=== PATIENT | female | born 1970 | race American Indian/Alaskan Native ===

== ENCOUNTER 2019-07-05 06:07 | Inpatient (IN) | payer OTHER, MEDICAID ==
[2019-07-05] MEDS ORDERED: cefOXitin 2 GM Vial ONE (06:40)
[2019-07-05] MEDS ORDERED: Scopolamine 1.5 MG Transdermal Patch TOP SCH (06:45)
[2019-07-05] MEDS ORDERED: Gabapentin 300 MG Cap PO ONE (06:45)
[2019-07-05] MEDS ORDERED: Acetaminophen 500 MG Tab PO ONE (06:45)
[2019-07-05] MEDS ORDERED: Celecoxib 200 MG Cap PO ONE (06:45)
[2019-07-05] MEDS ORDERED: Dextrose 5%-Lactated Ringers 1,000 ML IV SCH (07:00)
[2019-07-05] MEDS ORDERED: fentaNYL 250 MCG/5 ML SDV ONE ×2 (07:28→10:36)
[2019-07-05] MEDS ORDERED: Ondansetron 4 MG/2 ML SDV ONE (07:29)
[2019-07-05] MEDS ORDERED: Neostigmine Methylsulfate 1 MG/ML 5 ML Syringe ONE (07:29)
[2019-07-05] MEDS ORDERED: Succinylcholine 200 MG/10 ML MDV ONE (07:29)
[2019-07-05] MEDS ORDERED: Glycopyrrolate 0.2 MG/ML 5 ML MDV ONE (07:29)
[2019-07-05] MEDS ORDERED: Propofol 200 MG/20 ML SDV ONE (07:29)
[2019-07-05] MEDS ORDERED: Rocuronium 50 MG/5 ML Vial ONE (07:29)
[2019-07-05] MEDS ORDERED: Dexamethasone 4 MG/ML SDV ONE (07:29)
[2019-07-05] MEDS ORDERED: Magnesium Sulfate 3.7 GM in Sodium Chloride 0.9% 100 ML IV SCH (08:45)
[2019-07-05] MEDS ORDERED: Ketamine 500 MG/5 ML MDV IV SCH (08:45)
[2019-07-05] MEDS ORDERED: Ketamine 50 MG in Sodium Chloride 0.9% 49.5 ML IV SCH (08:45)
[2019-07-05] MEDS ORDERED: cefOXitin 2 GM in Sodium Chloride 0.9% 50 ML IV ONE (10:00)
[2019-07-05] MEDS ORDERED: fentaNYL 100 MCG/2 ML SDV ONE (11:17)
[2019-07-05] MEDS ORDERED: Labetalol 20 MG/4 ML Syringe ONE (11:33)
[2019-07-05] MEDS ORDERED: fentaNYL 100 MCG/2 ML SDV IVPUSH ONE (12:18)
[2019-07-05] MEDS ORDERED: Ondansetron 4 MG/2 ML SDV IVPUSH ONE (12:18)
[2019-07-05] MEDS ORDERED: hydrOXYzine HCL 100 MG/2 ML SDV IM ONE (12:18)
[2019-07-05] MEDS ORDERED: Tranexamic Acid 1,000 MG in Sodium Chloride 0.9% 50 ML IV ONE ×2 (12:45→16:00)
[2019-07-05] MEDS ORDERED: Coagulation Factor VIIa Recombinant (per MCG) 2 MG Vial IVPUSH ONE (13:15)
[2019-07-05] MEDS ORDERED: Acetaminophen 500 MG Tab PO PRN (14:20)
[2019-07-05] MEDS ORDERED: Albuterol/Ipratropium 3.0-0.5 MG/3 ML Neb Soln INH PRN (14:20)
[2019-07-05] MEDS ORDERED: Calcium Gluconate 10% 1 GM/10 ML SDV IVPUSH PRN (14:20)
[2019-07-05] MEDS ORDERED: HYDROmorphone 0.5 MG/0.5 ML Syringe IVPUSH PRN (14:20)
[2019-07-05] MEDS ORDERED: Labetalol 20 MG/4 ML Syringe IVPUSH PRN (14:20)
[2019-07-05] MEDS ORDERED: HYDROmorphone 1 MG/ML Syringe IV PRN (14:20)
[2019-07-05] MEDS ORDERED: Ondansetron 4 MG/2 ML SDV IVPUSH PRN (14:20)
[2019-07-05] MEDS ORDERED: diphenhydrAMINE 50 MG/ML SDV IVPUSH PRN (14:20)
[2019-07-05] MEDS ORDERED: Metoclopramide 10 MG/2 ML SDV IVPUSH PRN (14:20)
[2019-07-05] MEDS: Dextrose 5%-Lactated Ringers 1,000 ML IV SCH ×2 (14:22→16:22)
[2019-07-05] MEDS ORDERED: MVI, Adult with Vitamin K 10 ML, Thiamine 200 MG, Chromium/Copper/Mang/Selen/Zn 1 ML in... IV SCH ×4 (16:00)
[2019-07-05] MEDS: cefOXitin 2 GM in Sodium Chloride 0.9% 50 ML IV SCH ×2 (16:21→21:52)
[2019-07-05] MEDS ORDERED: Pantoprazole 40 MG Vial IVPUSH SCH (16:30)
[2019-07-05] MEDS: Acetaminophen 500 MG Tab PO SCH (17:01)
[2019-07-05] MEDS: hydrOXYzine HCL 100 MG/2 ML SDV IM PRN (17:02)
[2019-07-05] MEDS: oxyCODONE 5 MG Tab PO PRN (17:02)
[2019-07-05] MEDS: Gabapentin 250 MG/5 ML Solution ML 470 ML Bottle PO SCH (21:53)
[2019-07-05] MEDS: Cyclobenzaprine 10 MG Tab PO PRN (21:53)
[2019-07-05] MEDS: Metoprolol Succinate 25 MG Tab.ER PO SCH (21:54)
[2019-07-05] MEDS: Nortriptyline 25 MG Cap PO SCH (21:54)
[2019-07-06] MEDS: Acetaminophen 500 MG Tab PO SCH ×4 (00:05→23:10)
[2019-07-06] MEDS ORDERED: methylPREDNISolone Sodium Succinate 125 MG/2 ML SDV IV ONE (03:45)
[2019-07-06] MEDS ORDERED: Iopamidol 612 MG/ML 50 ML SDV PO STA (03:45)
[2019-07-06] MEDS: cefOXitin 2 GM in Sodium Chloride 0.9% 50 ML IV SCH (03:45)
[2019-07-06] MEDS: Dextrose 5%-Lactated Ringers 1,000 ML IV SCH (05:33)
[2019-07-06] MEDS: oxyCODONE 5 MG Tab PO PRN ×2 (07:14→14:07)
[2019-07-06] MEDS ORDERED: Dextrose 5%-Lactated Ringers 1,000 ML IV SCH (07:28)
[2019-07-06] MEDS ORDERED: Ondansetron 4 MG Tab.DIS PO PRN (07:29)
[2019-07-06] MEDS: Enoxaparin 40 MG/0.4 ML Syringe SUBCUT SCH ×2 (09:07→21:03)
[2019-07-06] MEDS: Escitalopram 10 MG Tab PO SCH (09:10)
[2019-07-06] MEDS: Celecoxib 200 MG Cap PO SCH ×2 (09:10→21:03)
[2019-07-06] MEDS: Gabapentin 250 MG/5 ML Solution ML 470 ML Bottle PO SCH ×3 (09:10→21:03)
[2019-07-06] MEDS: SCOPOLAMINE PATCH CHECK TOP SCH (09:12)
--- NOTE | 2019-07-06 09:33 | PN ---
DATE OF SERVICE: 07/06/2019 SUBJECTIVE: Melanie is postop day 1. Postoperatively, she had a lot of bleeding from her left trocar site. She was given 2 doses of tranexamic acid and fibrin. She has been up ambulating. Vital signs stable. Labs this morning: Hemoglobin 12.2. Oral intake 1730. Urine output 1400, and LISSETTE put out 50 mL of a red drainage. Pain has been controlled with energy protocol. REVIEW OF SYSTEMS: Remainder of review of systems negative for any pertinent positives or negatives. LABORATORY DATA: As stated. Hemoglobin 12.5. Creatinine 1.3. OBJECTIVE: GENERAL: Melanie Pickens is a pleasant 49-year-old female, alert, orientated. VITAL SIGNS: TPR at 0704, 98.9, 76, 16, blood pressure 99/72. HEENT: Negative. NECK: Supple. HEART: Regular rate and rhythm. LUNGS: Clear. ABDOMEN: Dressings dry and intact. There is a pressure dressing over left trocar site. EXTREMITIES: Without peripheral edema. ASSESSMENT: Diagnostic laparoscopy with: 1. Laparoscopic Levy-en-Y gastric bypass surgery. 2. Liver biopsy. 3. Repair of paraesophageal diaphragmatic hernia. 4. Excision of mediastinal lipoma. 5. Small bowel resection. POSTOPERATIVE DIAGNOSES: Morbid obesity, hepatomegaly, paraesophageal diaphragmatic hernia, mediastinal lipoma, and immobile fat layer mesentery requiring small bowel resection to allow adequate mobilization of the jejunojejunostomy. Date of surgery: 07/05/2019. Surgeon: Talon Sparks MD. PLAN: 1. Lovenox 40 mg subcu q.12 hours. 2. Check CBC, CMP, mag, phos in a.m. 3. Discontinue cefoxitin. 4. Decrease IV to 100 mL per hour. 5. Leave pressure dressing over left trocar site. 6. Bariatric step 2 with no cereal diet. 7. Communication order to have 3 med cups at bedside and to drink 1 every 20 minutes or 3 per hour and record. 8. Good pulmonary toilet. 9. We will evaluate p.r.n. or in a.m. Shae Griffin PA-C /[id number]
--- NOTE | 2019-07-06 09:50 | CR ---
UG[facility] HISTORY: Postbariatric surgery FINDINGS: Patient swallowed water-soluble contrast. Upright views of the abdomen show no evidence of extravasation or obstruction. IMPRESSION: Status post bariatric surgery No extravasation or obstruction seen
[2019-07-06] MEDS: amLODIPine 5 MG Tab PO SCH (09:52)
[2019-07-06] MEDS: Metoprolol Succinate 25 MG Tab.ER PO SCH ×2 (09:58→21:06)
--- NOTE | 2019-07-06 12:24 | OR ---
DATE OF PROCEDURE: 07/05/2019 SURGEON: Talon Sparks MD PREOPERATIVE DIAGNOSIS: Morbid obesity. POSTOPERATIVE DIAGNOSIS: 1. Morbid obesity. 2. Marked hepatomegaly. 3. Paraesophageal diaphragmatic hernia. 4. Mediastinal lipoma. 5. Immobile fat-laden mesentery requiring small bowel resection to allow adequate mobility of jejunojejunostomy. OPERATIVE PROCEDURE: Diagnostic laparoscopy with: 1. Laparoscopic Levy-en-Y gastric bypass with long limb gastroenterostomy (68460). 2. Needle liver biopsy (83924). 3. Repair of paraesophageal diaphragmatic hernia (90840). 4. Excision of mediastinal lipoma (84058). 5. Small bowel resection (33223). ANESTHESIA: General. POCKET OPERATOR: Shae Griffin PA-C INDICATION FOR PROCEDURE: This is a 49-year-old female presenting with longstanding morbid obesity and increasingly significant comorbidities. After preoperative evaluation and discussion, she wished to proceed with a gastric bypass procedure. Potential risks of the procedure including bleeding, infection, leaks from various GI tract closures, possible bowel obstruction over time, as well as the remote possibility of cardiopulmonary, septic, or hemorrhagic complications leading to were all discussed, and the patient wishes to proceed. DETAILS OF PROCEDURE: The patient was taken to the operating room and placed in a supine position. After general endotracheal anesthesia was induced, she was converted to a lithotomy position and the abdomen prepped and draped. 15 cm inferior and 5 cm left of the xiphoid process, a transverse incision was made and the peritoneal cavity entered under direct visualization with an Optiview trocar and inflated to 15 mmHg pressure of CO2. Laparoscope was then reinserted. No underlying trocar insertion site injuries were seen. Following this, bilateral subcostal transversus abdominis plane blocks were placed, and 5 additional trocars were placed across the upper and mid abdomen. Initial exploration showed marked enlargement of the liver which was fatty infiltrated. Hector-Cut needle biopsies were obtained from the left lobe of the liver. Minimal bleeding from the biopsy sites was controlled with electrocautery. At this point, the omentum was divided in the midline up to the level of the transverse colon. This allowed identification of the small bowel at the ligament of Treitz. The small bowel was then traced out 150 cm distal to the ligament of Treitz. It was divided transversely with a KENIA stapler. It was noted that the small bowel mesentery was extremely fat laden and not very mobile. Given this, an additional small bowel resection was undertaken, removing around 12 cm of the biliopancreatic limb which will typically give us a much more immobile jejunojejunostomy to ligate a more tension-free subsequent gastrojejunostomy. Following this, excision was done with the Harmonic scalpel and division of the bowel with a KENIA stapler. The more distal small bowel was then traced out an additional 180 cm where the [id number] enteroenterostomy was accomplished with an internal firing of the Endo-KENIA 60 mm stapler. Common opening was then closed transversely with the same stapler, angles anastomosed, and mesenteric defect approximated with some 0 Ethibond stitch along with fibrin sealant. Divided end of the Levy limb was then able to be passed through the antecolic position up to the level of the gastroesophageal junction without significant tension. The liver was then retracted anteriorly. The patient was noted to have a fairly large paraesophageal hernia containing some perigastric fat and the gastric fundus as well as kind of omentum in a plane anterior to the course of the esophagus. The hernia was then reduced and the peritoneum overlying the hernia incised. During the course of the dissection, a fairly large mediastinal lipoma was encountered, and this was excised to allow a more adequate closure of the crura. An anterior crural repair was then accomplished with 0 Ethibond sutures reinforced with PTFE pledgets. The gastrointestinal catheter was then inflated to 15 mL and pulled up snugly against the EG junction. The gastric wall over the apex balloon was then marked with electrocautery and balloon catheter deflated and pulled up from the esophagus. The lesser omental tissue adjacent to the gastric cardia was then incised, allowing dissection behind the stomach at that level. Pouch formation was initiated with transverse firing of the KENIA stapler at the level of the cauterized ronda in the gastric cardia and completed with 2 initial firings of the KNEIA get up to and through the angle of His. Upon completion of the pouch, both staple lines were noted to be intact. The anvil of a 25 mm EEA stapler was attached to a Estill sump-type tube and brought down through the mouth and taken out through a small opening in the gastric pouch. The Levy limb was then opened, and the main body of the EEA stapler was passed several centimeters out the lumen of the small bowel, brought up the anvil, and united with it, thus creating the gastrojejunostomy. Upon removal of the stapler, double donuts of mucosa were noted within it. The small bowel was closed off with a vascular staple line. Gastrojejunostomy was then reinforced with some 3-0 Vicryl seromuscular stitch along with fibrin sealant. A leak test was accomplished with injection of 120 mL of air in the gastric pouch while it was submerged with cefoxitin-containing saline solution. No leaks were identified. A single Alok-Ramirez drain was then taken out through the left lateral trocar site. Upon withdrawal of the left lateral trocar, the patient was noted to have quite a bit of arterial-type bleeding from that area. This was then secured by means of 2 fascial stitches placed with a suture passer device, these being 0 Vicryl sutures, and this appeared to satisfactorily control the bleeding. The blood in the abdomen at that point was evacuated, and trocars were removed. The peritoneal cavity deflated. The incisions were closed with some 4-0 Vicryl skin stitch, and drain affixed with 4-0 Vicryl stitch as well. The patient was taken to the recovery room in stable condition. Physician pediatric physical therapy assistant, Shae Griffin, played an essential role in assisting in this case, helping to position the patient, retract structures as needed, as well as suturing and cutting sutures when indicated. Her presence improved patient safety and decreased operative time. Talon Sparks MD /[id number]
[2019-07-06] MEDS: Pantoprazole 40 MG Tab.CR PO SCH (16:44)
[2019-07-06] MEDS: Cyclobenzaprine 10 MG Tab PO PRN (17:08)
[2019-07-06] MEDS: hydrOXYzine HCL 100 MG/2 ML SDV IM PRN (17:08)
[2019-07-06] MEDS: Nortriptyline 25 MG Cap PO SCH (21:03)
[2019-07-07] MEDS: Enoxaparin 40 MG/0.4 ML Syringe SUBCUT SCH (07:14)
[2019-07-07] MEDS: Acetaminophen 500 MG Tab PO SCH (07:15)
[2019-07-07] MEDS: SCOPOLAMINE PATCH CHECK TOP SCH (08:29)
[2019-07-07] MEDS: Celecoxib 200 MG Cap PO SCH (08:29)
[2019-07-07] MEDS: Escitalopram 10 MG Tab PO SCH (08:29)
[2019-07-07] MEDS: Gabapentin 250 MG/5 ML Solution ML 470 ML Bottle PO SCH (08:29)
[2019-07-07] MEDS: amLODIPine 5 MG Tab PO SCH (08:29)
[2019-07-07] MEDS: Metoprolol Succinate 25 MG Tab.ER PO SCH (08:30)
[2019-07-07] MEDS: Pantoprazole 40 MG Tab.CR PO SCH (08:30)
[2019-07-07] MEDS ORDERED: Cyanocobalamin (Vitamin B12) 1,000 MCG/ML SDV IM ONE (09:00)
--- NOTE | 2019-07-07 09:18 | DISCH ---
ADMISSION DIAGNOSES: Morbid obesity, BMI 42.6; essential hypertension; anxiety; major depression; chronic low back pain; gastroesophageal reflux disease; mild obstructive sleep apnea. DISCHARGE DIAGNOSES: Diagnostic laparoscopy with: 1. Laparoscopic Levy-en-Y gastric bypass surgery with long limb gastroenterostomy. 2. Needle liver biopsy. 3. Repair of paraesophageal diaphragmatic hernia. 4. Excision of mediastinal lipoma. 5. Small bowel resection. POSTOPERATIVE DIAGNOSES: 1. Morbid obesity. 2. Marked hepatomegaly. 3. Paraesophageal diaphragmatic hernia. 4. Mediastinal lipoma. 5. Immobile fat laden mesentery requiring small bowel resection to allow adequate mobility of jejunojejunostomy. 6. Date of surgery: 07/05/2019. Surgeon: Talon Sparks MD. HISTORY: Melanie Pickens is a 49-year-old female presenting with longstanding history of morbid obesity and increasing comorbidities. After preoperative evaluation and discussion of possible risks and possible complications, she wished to proceed with surgical procedure. HOSPITAL COURSE: Melanie had her surgery on 07/05/2019. She had arterial type bleeding from the left lateral trocar site and it was secured with 2 fascial sutures and a suture passer device. She continued to bleed and was given 2 doses of tranexamic acid and factor VII. Heparin was held and the next day she was started on Lovenox. On postoperative day #1, upper GI was normal, started on Lovenox as stated, and she received dietary instruction. Her activity was good. Pain was managed with energy protocol. Her hemoglobin was 12.2 and on day of admission was 10.2. Vital signs were stable, afebrile. Oral intake adequate at 2870 and she was able to be discharged to home with no complications. PHYSICAL EXAMINATION: GENERAL: Melanie Pickens is a pleasant 49-year-old female. VITAL SIGNS: Height is 5 feet 7.5 inches, weight is 275 pounds, BMI 42.6. TPR at 07:02 was 97.9, 67, 16, blood pressure 99/56, O2 sats by pulse oximetry 95%. HEENT: Negative. NECK: Supple. HEART: Regular rate and rhythm. LUNGS: Clear. ABDOMEN: Trocar sites, sutures intact, healing well. EXTREMITIES: Without peripheral edema. DISPOSITION: Discharged to home. CONDITION: Stable and improving. FOLLOWUP APPOINTMENT: Shae Griffin PA-C, on 07/15/2019 at 9:[address] [facility]. HOME MEDICATIONS: 1. Tylenol 1000 mg every 8 hours p.r.n. pain. 2. Wellbutrin 75 mg b.i.d. #60, 11 refills. 3. Celebrex 200 mg twice daily, #28. 4. Zofran ODT 4 mg every 4 hours p.r.n. nausea, #30. 5. She is to discontinue taking the Wellbutrin 300 mg XL once daily. 6. Resume aspirin 81 mg daily. 7. Lexapro 10 mg oral daily. 8. Toprol-XL 12.5 mg oral twice daily. 9. Pamelor/nortriptyline 25 mg at bedtime. 10.Atorvastatin 20 mg oral daily. 11.Amlodipine besylate 5 mg oral daily. 12.Hydrochlorothiazide 25 mg oral daily. 13.Discontinue taking vitamins and supplements until after first postoperative appointment. DIET AFTER DISCHARGE: Drink 8 to 10 glasses of water a day. Step 2 gastric bypass diet with no cereal until 07/20/2019. ACTIVITY: Other activity: Walk at least 6 times inside your house daily. Driving: Do not drive for 1 week. Shower/bathing: May shower. DISCHARGE INSTRUCTIONS: Notify provider if any fever, increased pain, nausea, or vomiting. Keep site clean and dry. Wound incision care. Wear abdominal binder for 2 weeks and then as tolerated. SPECIAL INSTRUCTIONS: 1. One use incentive spirometer 10 times every hour while awake for 1 week. 2. On your way home today and when coming back for your appointment next Thursday, stop in [place] and walk around your car about 10 times to avoid getting the blood clot.
== END 2019-07-07 08:50 | disposition home or self-care (01) | DRG 621 ==
LOC: JP.SDS 06:07 → JP.MS 06:07 → EDSTATUS 08:15 → JP.MS 12:30
PROVIDERS: ADMIT Surgery; ATTEND Surgery
PROC: 0D164ZA Bypass Stomach to Jejunum, Percutaneous Endoscopic Approach (ICD-10-PCS; principal; 2019-07-05)
PROC: 0FB24ZX Excision of Left Lobe Liver, Percutaneous Endoscopic Approach, Diagnostic (ICD-10-PCS; 2019-07-05)
PROC: 0BQT4ZZ Repair Diaphragm, Percutaneous Endoscopic Approach (ICD-10-PCS; 2019-07-05)
PROC: 0DB84ZZ Excision of Small Intestine, Percutaneous Endoscopic Approach (ICD-10-PCS; 2019-07-05)
PROC: 0JB63ZZ Excision of Chest Subcutaneous Tissue and Fascia, Percutaneous Approach (ICD-10-PCS; 2019-07-05)
DX: E66.01 Morbid (severe) obesity due to excess calories (principal); R16.0 Hepatomegaly, not elsewhere classified; D17.4 Benign lipomatous neoplasm of intrathoracic organs; K44.9 Diaphragmatic hernia without obstruction or gangrene; Z68.41 Body mass index [BMI] 40.0-44.9, adult; K21.9 Gastro-esophageal reflux disease without esophagitis; G47.33 Obstructive sleep apnea (adult) (pediatric); F41.9 Anxiety disorder, unspecified; F32.9 Major depressive disorder, single episode, unspecified; M54.5 Low back pain; G89.29 Other chronic pain; I10 Essential (primary) hypertension; E78.5 Hyperlipidemia, unspecified; Z90.49 Acquired absence of other specified parts of digestive tract; Z90.710 Acquired absence of both cervix and uterus; Z91.09 Other allergy status, other than to drugs and biological substances; Z87.891 Personal history of nicotine dependence; Z79.82 Long term (current) use of aspirin; Z79.899 Other long term (current) drug therapy
CPT/HCPCS: 36415; 74240; 74240-26; 80053; 81003; 83735; 83880; 84100; 85025; 85027; 86850; 86900; 86901; 88304; 88307; 88313; 93005; A9270-GY; C9113; J0171; J0330; J0694; J1100; J1170; J1650; J2405; J2704; J2710; J2795; J2930; J3010; J3410; J3411; J3420; J3475; J3490; J7030; J7050; J7121; J7189; Q9967

== ENCOUNTER 2019-07-13 11:31 | Observation (INO) | payer OTHER, MEDICAID ==
[2019-07-13] MEDS ORDERED: Meropenem 500 MG in Sodium Chloride 0.9% 50 ML IV ONE (13:00)
[2019-07-13] MEDS ORDERED: Cyclobenzaprine 10 MG Tab PO PRN (13:02)
[2019-07-13] MEDS: HYDROmorphone 2 MG Tab PO PRN ×2 (13:03→20:58)
[2019-07-13] MEDS: Metoprolol Succinate 25 MG Tab.ER PO SCH ×2 (13:49→20:59)
[2019-07-13] MEDS: Escitalopram 10 MG Tab PO SCH (13:49)
[2019-07-13] MEDS: Linezolid 600 MG in Premix Bag 1 BAG IV SCH (15:31)
[2019-07-13] MEDS: Acetaminophen 500 MG Tab PO SCH ×2 (15:33→22:25)
[2019-07-13] MEDS: Dextrose 5%-Lactated Ringers 1,000 ML with MVI, Adult with Vitamin K 10 ML, Chromium/Co... IV SCH ×3 (16:53)
[2019-07-13] MEDS: Meropenem 500 MG in Sodium Chloride 0.9% 50 ML IV SCH ×2 (18:44→23:23)
[2019-07-13] MEDS: Nortriptyline 25 MG Cap PO SCH (20:59)
[2019-07-14] MEDS: Linezolid 600 MG in Premix Bag 1 BAG IV SCH ×2 (03:14→15:40)
[2019-07-14] MEDS: Dextrose 5%-Lactated Ringers 1,000 ML with MVI, Adult with Vitamin K 10 ML, Chromium/Co... IV SCH ×3 (03:21)
[2019-07-14] MEDS: Acetaminophen 500 MG Tab PO SCH ×4 (03:23→21:30)
[2019-07-14] MEDS ORDERED: Dextrose 5%-Lactated Ringers 1,000 ML IV SCH ×4 (05:45→22:00)
[2019-07-14] MEDS: HYDROmorphone 2 MG Tab PO PRN ×2 (08:01→12:36)
[2019-07-14] MEDS: Meropenem 500 MG in Sodium Chloride 0.9% 50 ML IV SCH ×3 (08:09→17:38)
--- NOTE | 2019-07-14 08:17 | PN ---
DATE OF SERVICE: 07/14/2019 SUBJECTIVE: [facility] [place] [facility] for hematoma, left trocar site. Hematoma was drained at bedside per Talon Sparks MD and the trocar site remains open with packing. Vital signs have improved since admission. Temperature max of 98.6, pulse rate 75, and blood pressure within normal limits. Pain is controlled with Dilaudid. Hemoglobin 11.3 this morning. Potassium is 3.4. Glucose 165. REVIEW OF SYSTEMS: Remainder of review of systems negative for any pertinent positives and negatives. OBJECTIVE: GENERAL: Melanie Pickens is a pleasant 49-year-old female. VITAL SIGNS: TPR at 0324; 96.7, 75, 16. Blood pressure 124/78. HEENT: Negative. NECK: Supple. HEART: Regular rate and rhythm. LUNGS: Clear. ABDOMEN: Dressings dry and intact. Abdominal binder is on. EXTREMITIES: Without peripheral edema. ASSESSMENT: Hematoma, left trocar site. PLAN: 1. Zyvox 600 mg to be put in the warmer and to be used to irrigate trocar site. Talon Sparks MD will be up in between cases to irrigate this wound. 2. Dulcolax 10 mg tablets b.i.d. orally until bowel movement, then discontinue. 3. Encourage ambulation. 4. KCl 20 mEq IV, 1 time. 5. We will evaluate p.r.n. or in a.m. Shae Griffin PA-C /[id number]
[2019-07-14] MEDS: Bisacodyl 5 MG Tab PO SCH ×2 (08:22→21:27)
[2019-07-14] MEDS: Escitalopram 10 MG Tab PO SCH (08:24)
[2019-07-14] MEDS: Metoprolol Succinate 25 MG Tab.ER PO SCH ×2 (08:26→21:30)
[2019-07-14] MEDS ORDERED: Potassium Chloride 20 MEQ, Lidocaine 1% 2 ML in Sodium Chloride 0.9% 100 ML IV ONE (10:00)
[2019-07-14] MEDS: Nortriptyline 25 MG Cap PO SCH (21:30)
[2019-07-15] MEDS: Meropenem 500 MG in Sodium Chloride 0.9% 50 ML IV SCH ×2 (00:37→06:00)
[2019-07-15] MEDS: Linezolid 600 MG in Premix Bag 1 BAG IV SCH (03:56)
[2019-07-15] MEDS: Acetaminophen 500 MG Tab PO SCH ×2 (04:02→09:13)
[2019-07-15] MEDS ORDERED: Amoxicillin 250 MG/5 ML Susp 100 ML Bottle PO SCH (07:15)
[2019-07-15] MEDS: HYDROmorphone 2 MG Tab PO PRN (09:13)
[2019-07-15] MEDS: Metoprolol Succinate 25 MG Tab.ER PO SCH (09:14)
[2019-07-15] MEDS: Escitalopram 10 MG Tab PO SCH (09:14)
[2019-07-15] MEDS: Bisacodyl 5 MG Tab PO SCH (09:18)
--- NOTE | 2019-07-15 10:00 | DISCH ---
ADMISSION DIAGNOSES: 1. Hematoma, left trocar site. 2. Status post Lvey-en-Y gastric bypass surgery. 3. Unspecified surgical malabsorption. 4. Mild sleep apnea. 5. Chronic low back pain. 6. Morbid obesity. 7. BMI 42.3. 8. Essential hypertension. HISTORY: Melanie Pickens had Levy-en-Y gastric bypass surgery on 07/05/2019. She did have bleeding from the left trocar site during surgery. She was discharged on 07/07/2019. Since discharge, she has been in the emergency room twice for pain on that left side. She was transferred from the [facility] Room Department on 07/13/2019. On day of admission, Talon Sparks MD, drained the hematoma at bedside and the trocar site remained open with packing. Trocar site was irrigated with Zyvox 600 mg daily. She remained afebrile. Wound culture grew out viridans Streptococcus. Melanie's pain was controlled, her activity improved with encouragement. She was afebrile. Received dietary instruction. Sutures were removed from her incisions from Levy-en-Y gastric bypass surgery on 07/05/2019. She was able to be discharged to home on 07/15/2019 with no complications. REVIEW OF SYSTEMS: CONSTITUTIONAL: No fever, chills, night sweats, or fatigue. HEENT: Negative. NECK: Supple. HEART: No chest pain, shortness of breath, fast or irregular heart beat. LUNGS: No cough. ABDOMEN: Pain in that trocar site. Taking Tylenol, Celebrex, and Dilaudid for severe pain. Last bowel movement on 07/15/2019. EXTREMITIES: No joint pain or swelling. SKIN: Negative for rash. PSYCHIATRIC: Mood and affect appropriate. NEUROLOGIC: No loss of coordination, lightheadedness, headaches. Remainder of review of systems negative for any pertinent positives and negatives. OBJECTIVE: GENERAL: Melanie Pickens is a pleasant 49-year-old female. VITAL SIGNS: Height is 5 feet 7 inches, weight is 270 pounds, BMI is 42.3. TPR at 0700, 96.5; 67; 18; blood pressure 117/65. HEENT: Negative. NECK: Supple. HEART: Regular rate and rhythm. LUNGS: Clear. ABDOMEN: Trocar site is on the left side, is approximately 2 inches deep and 1-1/2 inches long. This was irrigated with Zyvox per Dr. Talon Sparks, and packed. The patient was taught how to pack the open trocar site. EXTREMITIES: Without peripheral edema. NEUROLOGIC: Intact. PSYCHIATRIC: Mood and affect appropriate. DISPOSITION: Discharged to home. CONDITION: Stable and improving. FOLLOWUP: Appointment with Talon Sparks MD, at [facility] on 07/20/2019 at 11 a.m. Appointment is to be in person. MEDICATIONS: 1. Dilaudid 2 mg oral q.6 hours p.r.n. pain, #28. 2. Tylenol 1000 mg every 6 hours p.r.n. pain. 3. Amoxicillin 250 mg/5 mL to take 10 mL every 8 hours for 7 days and she should be given 210 mL. 4. Resume home medication: a. Aspirin 81 mg daily. b. Celebrex 200 mg oral twice daily. c. Lexapro 10 mg oral daily. d. Toprol-XL 12.5 mg twice daily. e. Pamelor/nortriptyline 25 mg oral at bedtime. f. Zofran ODT 4 mg sublingual every 4 hours p.r.n. nausea, vomiting. g. Amlodipine besylate 5 mg oral daily. h. Atorvastatin calcium 20 mg oral daily. i. Bupropion 150 mg oral twice daily. j. Hydrochlorothiazide 25 mg oral daily. DIET: Continue step 2 gastric bypass diet with no cereal until next appointment. Drink 8 to 10 glasses of water a day, 65 g of protein. ACTIVITY: Other activity: Walk at least 8 times daily inside your home. Shower/bathing: May shower. DISCHARGE INSTRUCTIONS: Notify provider if any fever, increased pain, nausea, or vomiting. Keep site clean and dry. Wound incision care: Pack open incision lightly with gauze using a cotton-tipped applicator and cover with an ABD dressing as directed twice daily. May shower once a day with incision left open then towel dry lightly, then pack incision and cover with ABD.
--- NOTE | 2019-07-18 13:10 | PN ---
DATE OF SERVICE: 07/13/2019 The patient is 8 days status post Levy-en-Y gastric bypass. Initially, she did well, but over the last few days has developed an increased pain in the left lateral trocar site, along with some low-grade fevers and elevated white count. She presented to the emergency room in [place] twice, including early this morning, and CT scan showed hematoma in that trocar site, but otherwise nothing intraabdominally. She is eating reasonably well and, from a GI tract standpoint, does not sound like there is much of a problem. Examination does show some drainage of old blood from the left lateral trocar site. She did have some intraoperative bleeding that needed to be controlled with some additional sutures, so it was not a surprise that there was a hematoma there. This is where she is quite tender, and I suspect this is probably where the infection is. Given this, the wound was opened at the bedside, after being prepped, and the hematoma was evacuated, and cultures were obtained. The initial Gram stain showed some gram-positive cocci, so she is presently on meropenem and Zyvox. She probably can be switched to more of a simple antibiotic once we get some cultures back. The wound is packed today, and we will irrigate that out with some Zyvox- containing saline solution tomorrow morning, continue with IV antibiotics probably through the next day and a half, and have family members be instructed in terms of how to do dressing change prior to discharge. Talon Sparks MD /[id number]
== END 2019-07-15 10:20 | disposition home or self-care (01) ==
LOC: INTOOBSV 11:31 → JP.MS 11:31
PROVIDERS: ADMIT Surgery; ATTEND Surgery
PROC: 0W9F00Z Drainage of Abdominal Wall with Drainage Device, Open Approach (ICD-10-PCS; principal; 2019-07-14)
DX: L76.32 Postprocedural hematoma of skin and subcutaneous tissue following other procedure (principal); K91.2 Postsurgical malabsorption, not elsewhere classified; E66.01 Morbid (severe) obesity due to excess calories; Z68.41 Body mass index [BMI] 40.0-44.9, adult; I10 Essential (primary) hypertension; E78.5 Hyperlipidemia, unspecified; F41.9 Anxiety disorder, unspecified; F32.9 Major depressive disorder, single episode, unspecified; Z79.82 Long term (current) use of aspirin; Z79.899 Other long term (current) drug therapy; Z90.49 Acquired absence of other specified parts of digestive tract; Z87.891 Personal history of nicotine dependence
CPT/HCPCS: 10140; 36415; 80053; 83735; 84100; 85027; 87070; 87075; 87077; 87205; 96361; 96365; 96366; 96367; 96375; 96376; A9270; G0378; J2001; J2020; J2185; J3480; J3490; J7050; J7121

== ENCOUNTER 2019-08-11 06:01 | Day surgery (SDC) | payer OTHER, MEDICAID ==
[2019-08-11] MEDS ORDERED: Lactated Ringers 1,000 ML IV SCH (07:00)
[2019-08-11] MEDS ORDERED: fentaNYL 100 MCG/2 ML SDV ONE (07:08)
[2019-08-11] MEDS ORDERED: Propofol 200 MG/20 ML SDV ONE (07:08)
[2019-08-11] MEDS ORDERED: Midazolam 1 MG/ML 2 ML SDV ONE (07:08)
[2019-08-11] MEDS ORDERED: Glycopyrrolate 0.2 MG/ML 2 ML SDV IVPUSH ONE (07:30)
[2019-08-11] MEDS ORDERED: Cyanocobalamin (Vitamin B12) 1,000 MCG/ML SDV IM ONE (08:30)
[2019-08-11] MEDS ORDERED: MVI, Adult with Vitamin K 10 ML, Thiamine 200 MG, Chromium/Copper/Mang/Selen/Zn 1 ML in... IV ONE ×4 (08:30)
--- NOTE | 2019-08-17 16:21 | OR ---
DATE OF PROCEDURE: 08/11/2019 SURGEON: Talon Sparks MD PREOPERATIVE DIAGNOSIS: Possible stricture at gastrojejunostomy. POSTOPERATIVE DIAGNOSIS: Mild strictured gastrojejunostomy. OPERATIVE PROCEDURE: Upper gastrointestinal endoscopy with dilation of gastrojejunostomy (91919). ANESTHESIA: IV sedation. INDICATION FOR PROCEDURE: The patient is status post Levy-en-Y gastric bypass on 07/05/2019, presenting now with symptoms suggestive of possible stricture at gastrojejunostomy. Plan is to proceed with upper GI endoscopy with dilation as indicated. Potential risks including bleeding and perforation were discussed, and the patient wishes to proceed. DETAILS OF PROCEDURE: The patient was taken to the operating room and placed in a left lateral decubitus position. IV sedation was administered, after which the upper GI endoscope was passed orally through the length of the esophagus and into the gastric pouch. The gastrojejunostomy was very slightly narrowed, but the scope easily passed through that area. There was no significant inflammation present. The visualized portion of the Levy limb was unremarkable. At this point, 45-Belarusian balloon dilator was centered across the gastrojejunostomy and inflated. Upon deflation, there was a small amount of heme present indicating small bowel dilation had been accomplished. But, in general, this was the case where there was quite little in the way of stricturing. The scope was then withdrawn, and the above findings reconfirmed. The patient was taken to the recovery room in satisfactory condition. Talon Sparks MD /[id number]
== END 2019-08-11 10:40 | disposition home or self-care (01) ==
LOC: JP.SDS 06:01
PROVIDERS: ATTEND Surgery
DX: K94.29 Other complications of gastrostomy (principal); K21.9 Gastro-esophageal reflux disease without esophagitis; I10 Essential (primary) hypertension
CPT/HCPCS: 43245; J2250; J2704; J3010; J3411; J3420; J3490; J7120

== ENCOUNTER 2020-12-25 06:46 | Day surgery (SDC) | payer MEDICAID, OTHER ==
[2020-12-25] MEDS ORDERED: fentaNYL 100 MCG/2 ML SDV ONE (07:13)
[2020-12-25] MEDS ORDERED: Midazolam 1 MG/ML 2 ML SDV ONE (07:13)
[2020-12-25] MEDS ORDERED: Propofol 200 MG/20 ML SDV ONE (07:13)
[2020-12-25] MEDS ORDERED: Lactated Ringers 1,000 ML IV ONE (07:15)
[2020-12-25] MEDS ORDERED: MVI, Adult with Vitamin K 10 ML, Thiamine 200 MG, Zinc/Copper/Manganese/Selenium 1 ML i... IV ONE ×4 (07:15)
[2020-12-25] MEDS ORDERED: Cyanocobalamin (Vitamin B12) 1,000 MCG/ML SDV IM ONE (07:15)
[2020-12-25] MEDS ORDERED: Glycopyrrolate 0.2 MG/ML 2 ML SDV IVPUSH ONE (07:15)
--- NOTE | 2020-12-26 14:06 | OR ---
DATE OF PROCEDURE: 12/25/2020 SURGEON: Talon Sparks MD PREOPERATIVE DIAGNOSIS: Postprandial crampy abdominal pain. POSTOPERATIVE DIAGNOSES: Postprandial crampy abdominal pain associated with normal upper gastrointestinal endoscopic examination, status post Levy-en-Y gastric bypass. PROCEDURE PERFORMED: Upper gastrointestinal endoscopy with biopsies of the gastric pouch for CLOtest. ANESTHESIA: IV sedation. INDICATIONS FOR PROCEDURE: This is a 50-year-old status post Levy-en-Y gastric bypass in 2019. Recently, she has had increasing problems with postprandial abdominal pain. This occurred roughly 20 minutes after eating and had been severe enough that she has had to make emergency room visits. She presently is on both Carafate and Protonix. Plan is to proceed with upper GI endoscopy for diagnostic purposes. Potential risks including bleeding and perforation were discussed, and the patient wishes to proceed. DETAILS OF PROCEDURE: The patient was taken to the operating room and placed in a left lateral decubitus position. IV sedation was administered after which the upper GI endoscope was passed orally through the length of the esophagus into the gastric pouch and through the gastrojejunostomy roughly 20 cm into the Levy limb. Findings included a normal hypopharynx, larynx, upper esophageal sphincter, and esophageal body. At the EG junction, no significant inflammation was noted. Pouch was normally sized, and there was no significant pouch inflammation. There was no marginal ulcer or other signs of inflammation in the area of the gastrojejunostomy. The remaining portion of the Levy limb visualized was unremarkable. At this point, biopsies were obtained from the gastric pouch and sent for CLOtest for H pylori, and the procedure was then concluded. The patient recently had a CAT scan which did not show any obvious bowel obstruction, but the patient's pattern is quite classic for a partial SBO status post Levy-en-Y gastric bypass. At this point, there is no other reasonable explanation. The episodes have been severe enough that she has needed to come to the emergency room. After discussion, she would like to proceed with a limited exploration along with lysis of adhesions with bowel resection as indicated. Potential risks including bleeding, infection, injury to underlying viscera, possible recurrence of persistent symptoms following the procedure were gone over, and the patient wishes to proceed. The surgery will be scheduled for this coming Thursday. Talon Sparks MD /[id number]
== END 2020-12-25 10:30 | disposition home or self-care (01) ==
LOC: JP.SDS 06:46
PROVIDERS: ATTEND Surgery
DX: R10.9 Unspecified abdominal pain (principal); I10 Essential (primary) hypertension; K21.9 Gastro-esophageal reflux disease without esophagitis; Z98.84 Bariatric surgery status; Z01.812 Encounter for preprocedural laboratory examination; Z20.822 Contact with and (suspected) exposure to COVID-19
CPT/HCPCS: 87081; J2250; J2704; J3010; J3411; J3420; J3490; J7120; U0002

== ENCOUNTER 2020-12-28 07:59 | Inpatient (IN) | payer MEDICAID ==
[~2020-12-28 07:59] MED LIST: Bupivacaine 0.5% 50 ML MDV ONE; Lidocaine 1% with EPINEPHrine 1:100,000 50 ML MDV ONE; Meropenem 500 MG SDV ONE; Sodium Chloride 0.9% 0 ML ONE
[2020-12-28] MEDS ORDERED: Rocuronium 50 MG/5 ML Vial ONE (08:24)
[2020-12-28] MEDS ORDERED: Ondansetron 4 MG/2 ML SDV ONE (08:24)
[2020-12-28] MEDS ORDERED: Neostigmine Methylsulfate 1 MG/ML 5 ML Syringe ONE (08:24)
[2020-12-28] MEDS ORDERED: Succinylcholine 200 MG/10 ML MDV ONE (08:24)
[2020-12-28] MEDS ORDERED: Dexamethasone 4 MG/ML SDV ONE (08:24)
[2020-12-28] MEDS ORDERED: fentaNYL 250 MCG/5 ML SDV ONE (08:24)
[2020-12-28] MEDS ORDERED: Glycopyrrolate 0.2 MG/ML 5 ML MDV ONE (08:24)
[2020-12-28] MEDS ORDERED: Propofol 200 MG/20 ML SDV ONE (08:24)
[2020-12-28] MEDS ORDERED: Acetaminophen 500 MG Tab PO ONE (08:30)
[2020-12-28] MEDS ORDERED: Scopolamine 1.5 MG Transdermal Patch TOP ONE (08:30)
[2020-12-28] MEDS ORDERED: Celecoxib 200 MG Cap PO ONE (08:30)
[2020-12-28] MEDS ORDERED: Dextrose 5%-Lactated Ringers 1,000 ML IV SCH ×2 (09:00→13:15)
[2020-12-28] MEDS ORDERED: cefOXitin 2 GM in Sodium Chloride 0.9% 50 ML IV ONE (09:30)
[2020-12-28] MEDS ORDERED: Magnesium Sulfate 2.2 GM in Sodium Chloride 0.9% 250 ML IV ONE (09:45)
[2020-12-28] MEDS ORDERED: Magnesium Sulfate 2.1 GM in Sodium Chloride 0.9% 100 ML IV SCH (09:45)
[2020-12-28] MEDS ORDERED: Ketamine 500 MG/5 ML MDV IV SCH (09:45)
[2020-12-28] MEDS ORDERED: Ketamine 18 MG in Sodium Chloride 0.9% 19.82 ML IV SCH (09:45)
[2020-12-28] MEDS ORDERED: Ropivacaine 35 ML, dexAMETHasone 8 MG, EPINEPHrine 0.4 MG, Sodium Chloride 0.9% 42.6 ML NERVRT SCH ×4 (09:45)
[2020-12-28] MEDS ORDERED: Lidocaine 1% with EPINEPHrine 1:100,000 50 ML MDV INJECT ONE (11:29)
[2020-12-28] MEDS ORDERED: Bupivacaine 0.5% 50 ML MDV INJECT ONE (11:29)
[2020-12-28] MEDS ORDERED: Sugammadex Sodium 200 MG/2 ML VIAL ONE (11:45)
[2020-12-28] MEDS ORDERED: HYDROmorphone/Normal Saline 15 MG/30 ML PCA IV PRN (11:48)
[2020-12-28] MEDS ORDERED: Ondansetron 4 MG/2 ML SDV IVPUSH PRN ×2 (11:48→14:00)
[2020-12-28] MEDS ORDERED: Naloxone 0.4 MG/ML SDV IVPUSH PRN (11:48)
[2020-12-28] MEDS ORDERED: diphenhydrAMINE 50 MG/ML SDV IVPUSH PRN ×2 (11:48→14:00)
[2020-12-28] MEDS ORDERED: diphenhydrAMINE 25 MG Cap PO PRN (11:48)
[2020-12-28] MEDS ORDERED: Naloxone 0.4 MG/ML SDV IV PRN (12:00)
[2020-12-28] MEDS ORDERED: Nortriptyline 25 MG Cap PO PRN (13:12)
[2020-12-28] MEDS ORDERED: Calcium Gluconate 10% 1 GM/10 ML SDV IVPUSH PRN (14:00)
[2020-12-28] MEDS ORDERED: Metoclopramide 10 MG/2 ML SDV IVPUSH PRN (14:00)
[2020-12-28] MEDS ORDERED: Acetaminophen 500 MG Tab PO PRN (14:00)
[2020-12-28] MEDS ORDERED: Labetalol 20 MG/4 ML Syringe IVPUSH PRN (14:00)
[2020-12-28] MEDS ORDERED: hydrOXYzine HCL 100 MG/2 ML SDV IM PRN (14:00)
[2020-12-28] MEDS ORDERED: Pantoprazole 40 MG Vial IVPUSH SCH (15:30)
[2020-12-28] MEDS ORDERED: MVI, Adult with Vitamin K 10 ML, Thiamine 200 MG, Zinc/Copper/Manganese/Selenium 1 ML i... IV SCH ×4 (16:00)
[2020-12-28] MEDS: cefOXitin 2 GM in Sodium Chloride 0.9% 50 ML IV SCH ×2 (17:24→21:43)
[2020-12-28] MEDS: Acetaminophen 500 MG Tab PO SCH ×2 (17:26→23:27)
[2020-12-28] MEDS: Heparin Sodium 5,000 Units/ML Vial SUBCUT SCH (19:26)
[2020-12-29] MEDS ORDERED: Iopamidol 612 MG/ML 50 ML SDV PO PRN (01:29)
[2020-12-29] MEDS: cefOXitin 2 GM in Sodium Chloride 0.9% 50 ML IV SCH (03:10)
--- NOTE | 2020-12-29 07:58 | CRLCR ---
For Patients: As a result of the Cures Act, medical imaging exams and procedure reports are released immediately into your electronic medical record. You may view this report before your referring provider. If you have questions, please contact your health care provider. Indication: Post bariatric surgery. Technique: Three views of the abdomen. Comparison: None Findings: Images demonstrate filling of the distal esophagus and stomach with contrast on the 2nd image. On the 3rd image, contrast is identified extending into the small bowel. No leak of contrast is identified. Surgical clips are identified in the right upper quadrant. Impression: No leak identified. Dictated by Coleen Matias MD @ 12/29/2020 7:57:41 AM (Electronically Signed)
[2020-12-29] MEDS: Cyclobenzaprine 10 MG Tab PO PRN ×2 (08:03→17:08)
[2020-12-29] MEDS: Heparin Sodium 5,000 Units/ML Vial SUBCUT SCH ×2 (08:03→19:18)
[2020-12-29] MEDS: Acetaminophen 500 MG Tab PO SCH ×3 (08:03→23:47)
[2020-12-29] MEDS: HYDROmorphone 2 MG Tab PO PRN ×3 (08:03→19:16)
[2020-12-29] MEDS: Docusate Sodium 100 MG Cap PO SCH ×2 (08:04→21:27)
[2020-12-29] MEDS: Bisacodyl 5 MG Tab PO SCH ×2 (08:04→21:27)
[2020-12-29] MEDS: SCOPOLAMINE PATCH CHECK TOP SCH (08:04)
[2020-12-29] MEDS: Celecoxib 200 MG Cap PO SCH ×2 (08:04→21:27)
[2020-12-29] MEDS ORDERED: MVI, Adult with Vitamin K 10 ML, Thiamine 200 MG, Zinc/Copper/Manganese/Selenium 1 ML i... IV SCH ×4 (16:00)
[2020-12-29] MEDS: Pantoprazole 40 MG Delayed-Release Granules 1 Packet PO SCH (16:09)
[2020-12-30] MEDS: Dextrose 5%-Lactated Ringers 1,000 ML IV SCH ×3 (03:16→23:19)
[2020-12-30] MEDS: Cyclobenzaprine 10 MG Tab PO PRN ×2 (04:19→20:24)
[2020-12-30] MEDS: HYDROmorphone 2 MG Tab PO PRN ×4 (05:05→23:18)
[2020-12-30] MEDS ORDERED: Cyanocobalamin (Vitamin B12) 1,000 MCG/ML SDV IM ONE (09:00)
[2020-12-30] MEDS: Acetaminophen 500 MG Tab PO SCH ×3 (09:16→23:14)
[2020-12-30] MEDS: Bisacodyl 5 MG Tab PO SCH ×2 (09:16→20:20)
[2020-12-30] MEDS: Celecoxib 200 MG Cap PO SCH ×2 (09:16→20:19)
[2020-12-30] MEDS: Metoclopramide 10 MG/2 ML SDV IVPUSH SCH ×3 (09:16→20:19)
[2020-12-30] MEDS: Docusate Sodium 100 MG Cap PO SCH ×2 (09:16→20:20)
[2020-12-30] MEDS: Heparin Sodium 5,000 Units/ML Vial SUBCUT SCH ×2 (09:17→19:46)
[2020-12-30] MEDS: SCOPOLAMINE PATCH CHECK TOP SCH (09:35)
[2020-12-30] MEDS: Pantoprazole 40 MG Delayed-Release Granules 1 Packet PO SCH (16:12)
[2020-12-31] MEDS: Metoclopramide 10 MG/2 ML SDV IVPUSH SCH ×2 (02:41→09:02)
[2020-12-31] MEDS: Heparin Sodium 5,000 Units/ML Vial SUBCUT SCH (09:01)
[2020-12-31] MEDS: Celecoxib 200 MG Cap PO SCH (09:02)
[2020-12-31] MEDS: Acetaminophen 500 MG Tab PO SCH (09:02)
[2020-12-31] MEDS: Bisacodyl 5 MG Tab PO SCH (09:03)
[2020-12-31] MEDS: Docusate Sodium 100 MG Cap PO SCH (09:03)
[2020-12-31] MEDS: HYDROmorphone 2 MG Tab PO PRN (09:06)
[2020-12-31] MEDS: Cyclobenzaprine 10 MG Tab PO PRN (09:07)
--- NOTE | 2020-12-31 11:36 | DISCH ---
ADMISSION DIAGNOSES: Partial small bowel obstruction, status post Levy-en-Y gastric bypass surgery, unspecified surgical malabsorption, B12 deficiency. DISCHARGE DIAGNOSES: Diagnostic exploratory laparotomy with release of small bowel obstruction. Date of procedure: 12/28/2020. Surgeon: Talon Sparks MD. HISTORY: Melanie Pickens is a pleasant 50-year-old female who is status post Levy-en-Y gastric bypass surgery. After preoperative evaluation and discussion of possible risks and possible complications, she wished to proceed with surgical procedure. HOSPITAL COURSE: Melanie had her surgery on 12/28/2020. She had no operative complications. On postoperative day #1, her vital signs remained stable and she was started on a step 3 gastric bypass diet. She was ambulating. On postoperative day #2, she was started on bowel stimulation and had started passing flatus. She was ambulating. Pain was controlled. She was able to be discharged to home on postoperative day #3. PHYSICAL EXAMINATION: GENERAL: Melanie is a pleasant 50-year-old female. VITAL SIGNS: Height is 5 feet 7.5 inches, weight is 146 pounds, BMI is 22.5. TPR is 96.7, 74, 18, blood pressure 124/87. HEENT: Negative. NECK: Supple. HEART: Regular rate and rhythm. LUNGS: Clear. ABDOMEN: Aquacel dressings on. Abdominal binder is on. EXTREMITIES: Without peripheral edema. DISPOSITION: Discharged to home. CONDITION: Stable and improving. FOLLOWUP APPOINTMENT: Shae Griffin PA-C, 01/07/2021 at 10 a.m. HOME MEDICATIONS: 1. Celebrex 200 mg p.o. b.i.d., #28. 2. Dilaudid 2 mg p.o. q.4 hours p.r.n. pain, #12. 3. Zofran ODT 4 mg p.o. q.4 hours p.r.n. nausea, #30. DIET: Step 3 gastric bypass diet. Drink 8 to 10 glasses of water a day and 65 g of protein. ACTIVITY: As tolerated. No lifting greater than 10 pounds for 6 weeks. Walk 6 times daily. Driving: Do not drive for 1 week or within 8 hours of taking Dilaudid pain medication. DISCHARGE INSTRUCTIONS: Shower/bathing: May shower. Keep operative site clean and dry. Take off Aquacel dressing on 01/02/2021. Wear abdominal binder for 6 weeks if tolerated. Notify provider if any fever, increased pain, swelling, redness, drainage, nausea, or vomiting. SPECIAL INSTRUCTIONS: Use incentive spirometer 10 times every hour while awake. /[id number]
--- NOTE | 2020-12-31 12:57 | PN ---
DATE OF SERVICE: 12/29/2020 The patient is postop day 1 from a small bowel volvulus reduction. Overall, she is doing well. We will switch her over to oral pain medication today, go to a step-3 diet, give some bowel stimulation, turn down the IV rate. She maybe ready for discharge home tomorrow. Talon Sparks MD /[id number]
--- NOTE | 2020-12-31 13:52 | PN ---
DATE OF SERVICE: 12/30/2020 The patient has been afebrile with stable vital signs. Overnight, she developed a little bit in the way of nausea and some burping, probably has some degree of ileus. At this point, we will give her some Reglan on a scheduled basis IV. Otherwise, continue with bowel stimulation. We will hold her discharge and probably will be ready for discharge home tomorrow. Talon Sparks MD /[id number]
--- NOTE | 2021-01-01 06:57 | OR ---
DATE OF PROCEDURE: 12/28/2020 SURGEON: Talon Sparks MD PREOPERATIVE DIAGNOSIS: Partial small bowel obstruction. POSTOPERATIVE DIAGNOSIS: Partial small bowel obstruction secondary to small bowel volvulus. OPERATIVE PROCEDURES: Exploratory laparotomy with: 1. Reduction of small bowel volvulus and closure of internal hernia (01274). 2. Placement of Interceed mesh to limit adhesion formation between pelvic and abdominal wall and underlying viscera (90801). ANESTHESIA: General. MATCHER LEATHER PARTS: Shae Griffin PA-C INDICATIONS FOR PROCEDURE: This is a 50-year-old female presenting with postprandial crampy pain and some bloating. This occurs typically 10 to 20 minutes after eating. Upper endoscopy done earlier this week showed no evident problems in that area and plan is to proceed with an exploratory laparotomy for presumed partial small-bowel obstruction. Potential risks of the procedure including bleeding, infection, injury to underlying viscera, possible persistence or recurrence of symptoms or problems postoperatively were reviewed with the patient and she wishes to proceed. DETAILS OF PROCEDURE: The patient was taken to the operating room and placed in a supine position. After general endotracheal anesthesia was induced, a Tesfaye catheter was inserted and the abdomen prepped and draped. A midline incision with a length of the handsbreadth from the umbilicus towards the xiphoid was then made and carried down through the full- thickness abdominal wall. Upon entering the peritoneal cavity, the patient was noted to have a diffusely mildly dusky small bowel with quite a bit in the way of venous hypertension. Examination revealed what appeared to be a small bowel volvulus involving most of the small bowel including the jejunojejunostomy having prolapsed from a right to left direction through the mesenteric defect underlying the jejunojejunostomy. This was gradually reduced, and at that point, the bowel wall became pink and viable. There did not appear to be any indication of any bowel resection. Mesenteric defect at this point was closed with a 2-0 silk stitch. There was a second mesenteric defect underneath the point where the Levy limb passed over the transverse colon. This was affixed between the mesenteric edge and the underlying omentum with some silk stitch as well. At that point, no further problems were noted. Interceed mesh was then placed underneath the incision, and from there down towards the pelvis to limit adhesion formation between those surfaces and the underlying viscera. Bilateral transversus abdominis plane blocks at that point had been placed and midline fascia was approximated with #2 Vicryl stitch. The fascia was anesthetized with 1% lidocaine mixed with Marcaine and the subcutaneous tissue approximated with 2 layers of 3-0 and 4-0 Vicryl stitch and get for the skin. Dressing was applied. The patient was taken to the recovery room in satisfactory condition. There were no evident complications. Physician assistant professor of chemistry, Shae Griffin, played an essential role in assisting in this case, helping to position the patient, retract structures as needed, as well as suturing and cutting sutures when indicated. Her presence improved patient safety and decreased operative time. Talon Sparks MD /[id number]
== END 2020-12-31 09:30 | disposition home or self-care (01) | DRG 335 ==
LOC: JP.SDS 07:59 → JP.MS 07:59 → EDSTATUS 11:15 → JP.MS 11:45
PROVIDERS: ADMIT Surgery; ATTEND Surgery
PROC: 0DN80ZZ Release Small Intestine, Open Approach (ICD-10-PCS; principal; 2020-12-28)
PROC: 3E0M05Z Introduction of Adhesion Barrier into Peritoneal Cavity, Open Approach (ICD-10-PCS; 2020-12-28)
DX: K91.89 Other postprocedural complications and disorders of digestive system (principal); K56.2 Volvulus; K91.2 Postsurgical malabsorption, not elsewhere classified; E53.8 Deficiency of other specified B group vitamins; F41.9 Anxiety disorder, unspecified; F32.9 Major depressive disorder, single episode, unspecified; I10 Essential (primary) hypertension; E78.5 Hyperlipidemia, unspecified; Z90.49 Acquired absence of other specified parts of digestive tract; Z90.710 Acquired absence of both cervix and uterus; Z98.84 Bariatric surgery status; Z91.013 Allergy to seafood; Z91.09 Other allergy status, other than to drugs and biological substances; Z87.891 Personal history of nicotine dependence
CPT/HCPCS: 74240; 94762; A9270-GY; C9113; J0171; J0330; J0694; J1100; J1170; J1644; J1790; J2185; J2405; J2704; J2710; J2765; J2795; J3010; J3411; J3420; J3475; J3490; J7050; J7121; Q9967

== ENCOUNTER 2021-02-05 05:42 | Inpatient (IN) | payer MEDICAID ==
[2021-02-05] MEDS ORDERED: Scopolamine 1.5 MG Transdermal Patch TOP SCH (05:45)
[2021-02-05] MEDS ORDERED: Acetaminophen 500 MG Tab PO ONE (05:45)
[2021-02-05] MEDS ORDERED: Celecoxib 200 MG Cap PO ONE (05:45)
[2021-02-05] MEDS: Dextrose 5%-Lactated Ringers 1,000 ML IV SCH ×3 (06:01→15:10)
[2021-02-05] MEDS ORDERED: Meropenem 500 MG SDV ONE (06:46)
[2021-02-05] MEDS ORDERED: Bupivacaine 0.5% 50 ML MDV ONE (06:46)
[2021-02-05] MEDS ORDERED: Lidocaine 1% with EPINEPHrine 1:100,000 50 ML MDV ONE (06:47)
[2021-02-05] MEDS ORDERED: Rocuronium 50 MG/5 ML Vial ONE (07:06)
[2021-02-05] MEDS ORDERED: Ondansetron 4 MG/2 ML SDV ONE (07:06)
[2021-02-05] MEDS ORDERED: Dexamethasone 4 MG/ML SDV ONE (07:06)
[2021-02-05] MEDS ORDERED: Succinylcholine 200 MG/10 ML MDV ONE (07:06)
[2021-02-05] MEDS ORDERED: Propofol 200 MG/20 ML SDV ONE (07:06)
[2021-02-05] MEDS ORDERED: Glycopyrrolate 0.2 MG/ML 5 ML MDV ONE (07:06)
[2021-02-05] MEDS ORDERED: Neostigmine Methylsulfate 1 MG/ML 5 ML Syringe ONE (07:06)
[2021-02-05] MEDS ORDERED: fentaNYL 250 MCG/5 ML SDV ONE ×2 (07:08→08:33)
[2021-02-05] MEDS ORDERED: cefOXitin 2 GM in Sodium Chloride 0.9% 50 ML IV ONE (07:15)
[2021-02-05 07:17] LABS: CORONAVIRUS COVID-19 NAA NEGATIVE (NEGATIVE)
[2021-02-05] MEDS ORDERED: Ketamine 500 MG/5 ML MDV IV SCH (07:30)
[2021-02-05] MEDS ORDERED: Ropivacaine 35 ML, dexAMETHasone 8 MG, EPINEPHrine 0.4 MG, Sodium Chloride 0.9% 42.6 ML NERVRT SCH ×4 (07:30)
[2021-02-05] MEDS ORDERED: Ketamine 18 MG in Sodium Chloride 0.9% 19.82 ML IV SCH (07:30)
[2021-02-05] MEDS ORDERED: Bupivacaine 0.5% 50 ML MDV INJECT ONE (08:47)
[2021-02-05] MEDS ORDERED: Lidocaine 1% with EPINEPHrine 1:100,000 50 ML MDV INJECT ONE (08:48)
[2021-02-05] MEDS ORDERED: Meropenem 500 MG SDV IRR ONE (08:48)
[2021-02-05] MEDS ORDERED: fentaNYL 100 MCG/2 ML SDV IVPUSH ONE (09:48)
[2021-02-05] MEDS ORDERED: hydrOXYzine HCL 100 MG/2 ML SDV IM ONE (09:48)
[2021-02-05] MEDS ORDERED: HYDROmorphone/Normal Saline 15 MG/30 ML PCA IV PRN (09:55)
[2021-02-05] MEDS ORDERED: Naloxone 0.4 MG/ML SDV IVPUSH PRN (09:55)
[2021-02-05] MEDS ORDERED: Naloxone 0.4 MG/ML SDV IV PRN (10:00)
[2021-02-05] MEDS ORDERED: Cyclobenzaprine 10 MG Tab PO PRN (12:09)
[2021-02-05] MEDS: cefOXitin 2 GM in Sodium Chloride 0.9% 50 ML IV SCH ×2 (13:21→20:15)
[2021-02-05] MEDS: Acetaminophen 500 MG Tab PO SCH ×2 (13:21→21:48)
[2021-02-05] MEDS ORDERED: Pantoprazole 40 MG Vial IVPUSH SCH (14:00)
[2021-02-05] MEDS ORDERED: Acetaminophen 500 MG Tab PO PRN (14:00)
[2021-02-05] MEDS ORDERED: Ondansetron 4 MG/2 ML SDV IVPUSH PRN (14:00)
[2021-02-05] MEDS ORDERED: diphenhydrAMINE 50 MG/ML SDV IVPUSH PRN (14:00)
[2021-02-05] MEDS ORDERED: Labetalol 20 MG/4 ML Syringe IVPUSH PRN (14:00)
[2021-02-05] MEDS ORDERED: hydrOXYzine HCL 100 MG/2 ML SDV IM PRN (14:00)
[2021-02-05] MEDS ORDERED: Metoclopramide 10 MG/2 ML SDV IVPUSH PRN (14:00)
[2021-02-05] MEDS ORDERED: MVI, Adult with Vitamin K 10 ML, Thiamine 200 MG, Zinc/Copper/Manganese/Selenium 1 ML i... IV SCH ×4 (16:00)
[2021-02-05] MEDS: Heparin Sodium 5,000 Units/ML Vial SUBCUT SCH (20:15)
[2021-02-06] MEDS: cefOXitin 2 GM in Sodium Chloride 0.9% 50 ML IV SCH ×2 (02:03→07:51)
[2021-02-06] MEDS: Dextrose 5%-Lactated Ringers 1,000 ML IV SCH ×2 (02:07→11:46)
[2021-02-06] MEDS ORDERED: Iopamidol 612 MG/ML 50 ML SDV PO STA (02:21)
[2021-02-06] MEDS: Acetaminophen 500 MG Tab PO SCH ×3 (06:08→21:05)
[2021-02-06] MEDS ORDERED: Ondansetron 4 MG Tab.DIS PO PRN (07:09)
--- NOTE | 2021-02-06 07:49 | PN ---
DATE OF SERVICE: 02/06/2021 SUBJECTIVE: Melanie is postop day #1. Pain has been controlled with the BOARDER HAND. Her upper GI was normal. She has been up, ambulating. No questions or concerns. Vital signs have been stable. OBJECTIVE: GENERAL: Melanie Pickens is a pleasant 50-year-old female. VITAL SIGNS: TPR is 96.6, 49, 16, blood pressure 129/73. HEENT: Negative. NECK: Supple. HEART: Regular rate and rhythm. LUNGS: Clear. ABDOMEN: Dressings dry and intact. Abdominal binder is on. EXTREMITIES: Without peripheral edema. ASSESSMENT: Exploratory laparotomy with lysis of adhesions: 1. Reduction of small bowel volvulus and closure of internal hernia (under Levy limb mesentery). 2. Small-bowel resection. 3. Small bowel strictureplasty. 4. Excision of peritoneal implant. 5. Placement of Interceed mesh. POSTOPERATIVE DIAGNOSES: 1. Partial small bowel obstruction secondary to small bowel volvulus and stricture at the jejunojejunostomy and mid biliary pancreatic limb of the small bowel. 2. Peritoneal implant (1 to 2 cm) and then over mesentery at distal small bowel. 3. Date of procedure: 02/05/2021. Surgeon: Talon Sparks MD. PLAN: 1. Discontinue BOARDER HAND and continuous pulse ox. 2. Decrease IV D5 LR to 100 mL per hour. 3. Step 2 gastric bypass diet without cereal. 4. Oxycodone 5 mg q.4 hours p.r.n. pain. 5. May shower. 6. Continue use of incentive spirometer. 7. We will evaluate p.r.n. or in a.m. Shae Griffin PA-C /[id number]
[2021-02-06] MEDS: Heparin Sodium 5,000 Units/ML Vial SUBCUT SCH ×2 (07:50→19:53)
[2021-02-06] MEDS: Celecoxib 200 MG Cap PO SCH ×2 (08:09→21:05)
[2021-02-06] MEDS: SCOPOLAMINE PATCH CHECK TOP SCH (08:10)
[2021-02-06] MEDS: oxyCODONE 5 MG Tab PO PRN ×3 (10:11→19:08)
[2021-02-06] MEDS: Pantoprazole 40 MG Tab.CR PO SCH (11:22)
--- NOTE | 2021-02-06 11:39 | CRLCR ---
For Patients: As a result of the Century Cures Act, medical imaging exams and procedure reports are released immediately into your electronic medical record. You may view this report before your referring provider. If you have questions, please contact your health care provider. Indication: Gastric bypass surgery. Technique: Abdomen with oral contrast 3 views. Comparison: None. Findings/Impression: Oral contrast flows through the stomach into the small bowel. No sign of oral contrast extravasation/leak. No bowel obstructive changes or other significant abnormality. Dictated by Rakesh Dorsey MD @ 02/06/2021 11:37:41 AM (Electronically Signed)
[2021-02-06] MEDS ORDERED: MVI, Adult with Vitamin K 10 ML, Thiamine 200 MG, Zinc/Copper/Manganese/Selenium 1 ML i... IV SCH ×4 (16:00)
[2021-02-07] MEDS: oxyCODONE 5 MG Tab PO PRN ×2 (02:36→09:24)
[2021-02-07] MEDS: Dextrose 5%-Lactated Ringers 1,000 ML IV SCH (02:37)
[2021-02-07] MEDS: Acetaminophen 500 MG Tab PO SCH (05:23)
[2021-02-07] MEDS ORDERED: Magnesium Hydroxide 400 MG/5 ML Susp 30 ML Cup PO PRN (07:16)
[2021-02-07] MEDS: Heparin Sodium 5,000 Units/ML Vial SUBCUT SCH (07:26)
[2021-02-07] MEDS: Pantoprazole 40 MG Tab.CR PO SCH (07:26)
--- NOTE | 2021-02-07 08:56 | DISCH ---
ADMISSION DIAGNOSES: 1. Postprandial abdominal pain. 2. Partial small bowel obstruction. 3. Status post Levy-en-Y gastric bypass surgery. 4. Unspecified surgical malabsorption. 5. B12 deficiency. 6. Vitamin D deficiency. DISCHARGE DIAGNOSES: Exploratory laparotomy with lysis of adhesions. 1. Reduction of small bowel volvulus and closure of internal hernia (under Levy limb mesentery). 2. Small bowel resection. 3. Small bowel strictureplasty. 4. Excision of peritoneal implant. 5. Placement of Interceed mesh. POSTOPERATIVE DIAGNOSES: 1. Partial small bowel obstruction secondary to small bowel volvulus and stricture at the jejunojejunostomy and biliary pancreatic limb of the small bowel. 2. Peritoneal implants (1-2 cm) over mesentery of distal small bowel. 3. Date of procedure: 02/05/2021. Surgeon: Talon Sparks MD. HISTORY: Melanie Pickens is a pleasant 50-year-old female who recently had a repair of partial small bowel obstruction, but continued to have an increased amount of pain after eating. After preoperative evaluation and discussion of possible risks and possible complications, she wished to proceed with surgical procedure. HOSPITAL COURSE: Surgery was on 02/05/2021. There were no operative complications. On postoperative day #1, she was started on oral pain medication and step 2 gastric bypass diet without cereal. On postoperative day #2, activity was good, pain was well managed, vital signs stable, and she was able to be discharged to home. PHYSICAL EXAMINATION: GENERAL: Melanie Pickens is a pleasant 50-year-old female. VITAL SIGNS: Height 5 feet 7 inches, weight is 147 pounds. TPR is 96.5, 82, 18, blood pressure 112/68. HEENT: Negative. NECK: Supple. HEART: Regular rate and rhythm. LUNGS: Clear. ABDOMEN: Aquacel dressings on. Abdominal binder is on. EXTREMITIES: Without peripheral edema. NEUROLOGIC: Intact. PSYCHIATRIC: Mood and affect appropriate. DISPOSITION: Discharged to home. CONDITION: Stable and improving. FOLLOWUP: Appointment with Shae Griffin PA-C, on 02/15/2021 at 10 a.m. HOME MEDICATIONS: 1. Oxycodone 5 mg p.o. q.4 hours p.r.n. pain, #12. 2. Senna Plus 2 tablets p.o. at bedtime, #60. 3. Celebrex 200 mg p.o. b.i.d., #28. 4. Zofran ODT 4 mg every 4 hours p.r.n. nausea, #30 with 1 refill. 5. She is to resume her home medications. 6. Milk of magnesia 2 doses were sent home with the patient to take p.r.n. constipation. DIET: Step 3 gastric bypass diet for 2 weeks, 65 g of protein in 64 ounces of fluid. ACTIVITY: No lifting greater than 10 pounds for 6 weeks. OTHER ACTIVITY: Walk 6 times daily. Driving: Do not drive for 1 week or while on narcotic medication. Shower/bathing: May shower. Keep operative site clean and dry. DISCHARGE INSTRUCTIONS: Wear abdominal binder for 2 weeks and longer if tolerated. Take off Aquacel dressing on 02/10/2021. Notify provider if any fever, increased pain, swelling, redness, drainage, nausea, vomiting. SPECIAL INSTRUCTION: Use incentive spirometer 10 times every hour while awake for 1 week. /[id number]
[2021-02-07] MEDS ORDERED: Cyanocobalamin (Vitamin B12) 1,000 MCG/ML SDV IM ONE (09:00)
[2021-02-07] MEDS: SCOPOLAMINE PATCH CHECK TOP SCH (10:10)
[2021-02-07] MEDS: Celecoxib 200 MG Cap PO SCH (10:11)
--- NOTE | 2021-02-07 10:46 | OR ---
DATE OF PROCEDURE: 02/05/2021 SURGEON: Talon Sparks MD PREOPERATIVE DIAGNOSIS: Partial small bowel obstruction. POSTOPERATIVE DIAGNOSES: 1. Partial small bowel obstruction secondary to small bowel volvulus and strictures involving jejunojejunostomy and mid biliopancreatic limb of small bowel. 2. Peritoneal implant overlying mesentery of distal Levy limb of small bowel. OPERATIVE PROCEDURE: Exploratory laparotomy with lysis of adhesions and: 1. Reduction of small bowel volvulus and closure of internal hernia (43527). 2. Small bowel resection (04789). 3. Small bowel stricturoplasty (63851). 4. Excision of peritoneal implant over distal Levy limb of small bowel (94303). 5. Placement of Interceed mesh to limit recurrent adhesion formation between pelvic and abdominal wall and underlying viscera (01777). ANESTHESIA: General. PERFORATOR TYPIST: Shae Griffin PA-C. INDICATIONS FOR PROCEDURE: This is a 50-year-old status post Levy-en-Y gastric bypass, presenting with some persistent symptoms suggestive of partial small bowel obstruction. Recent CT scan was suggestive of a recurrent small bowel volvulus. Plan is to proceed with limited laparotomy with reduction of volvulus and lysis of adhesions and small bowel resection as indicated. Potential risks of the procedure including bleeding and perforation were discussed, and the patient wishes to proceed. DETAILS OF PROCEDURE: The patient was taken to the operating room and placed in a supine position. After general endotracheal anesthesia was induced, a Tesfaye catheter was inserted and the abdomen prepped and draped. Previous midline incision was reused from the umbilicus roughly a handsbreadth above the xiphoid slightly superior to the previous incision so as to allow entrance into the abdomen at plane. This was carried down through the full-thickness abdominal wall. There were some scattered omental adhesions between the anterior abdominal wall and the omentum, which were taken down. The patient did have a significant amount of dusky bowel initially identified and this was eventually identified as an area of small bowel volvulus involving the Levy limb and jejunojejunostomy in a [id number]-rb-[id number] direction underneath the mesentery of the Levy limb which had reopened up since the most recent procedure. This was reduced and at that point that bowel wall became well perfused in appearance. Due to the chronic angulation of the bowel at the point where the Levy limb entered the jejunojejunostomy was noted to be strictured and there was a secondary stricture in the biliopancreatic limb few centimeters proximal to the primary jejunojejunostomy. Given this, the Levy limb was divided off flush with the jejunostomy, small segment of that resected to facilitate mobility for a secondary anastomosis and that anastomosis was then accomplished roughly 20 cm distal to the original jejunojejunostomy with a gbjr-[id number] anastomosis between the Levy limb and the small bowel at that level with an internal firing of the Endo- KENIA 60 mm stapler followed by the common opening being closed transversely. Angles anastomosed and reinforced with some 3-0 Vicryl stitch and the mesenteric defect approximated with 2-0 silk stitch. The area of stricturing in the biliopancreatic limb was then dealt with by means of a strictureplasty and the bowel was flipped over on itself and an opening made in the antimesenteric border and a 60 mm KENIA stapler followed by a 30 mm KENIA stapler were placed internally and the common opening was then closed transversely with the KENIA stapler as well. In this case, there was no mesenteric defect and the angles anastomosed were reinforced with some 3-0 Vicryl stitch. During the course of the dissection, the patient was noted to have a roughly 2 mm white nodular peritoneal implant over the mesentery of the distal most Levy limb. This was excised and sent as a separate specimen. The area was then irrigated with an antibiotic-containing saline solution. No further problems were noted as the bowel was once again run in its entirety. Interceed mesh was then placed underneath the incision from there down towards the pelvic and abdominal wall and bilateral transversus abdominis plane blocks at that point then placed and the fascia closed with a #2 Vicryl stitch and fascia was then anesthetized with 1% lidocaine mixed with Marcaine and the subcutaneous tissue was then approximated with 2 layers of 3-0 Vicryl stitch and the skin with get. Dressing was applied. There were no evident complications. The patient was taken to the recovery room in satisfactory condition. Physician respiratory therapy assistant, Shae Griffin, played an essential role in assisting in this case, helping to position the patient, retract structures as needed, as well as suturing and cutting sutures when indicated. Her presence improved patient safety and decreased the operative time. Talon Sparks MD Job #: [id number]
== END 2021-02-07 10:17 | disposition home or self-care (01) | DRG 329 ==
LOC: JP.SDS 05:42 → EDSTATUS 07:15 → UNDOADMIN 09:50 → JP.MS 09:50 → JP.ICU 09:50
PROVIDERS: ADMIT Surgery; ATTEND Surgery
PROC: 0DS80ZZ Reposition Small Intestine, Open Approach (ICD-10-PCS; principal; 2021-02-05)
PROC: 0DB80ZZ Excision of Small Intestine, Open Approach (ICD-10-PCS; 2021-02-05)
PROC: 0DQ80ZZ Repair Small Intestine, Open Approach (ICD-10-PCS; 2021-02-05)
PROC: 0DBW0ZZ Excision of Peritoneum, Open Approach (ICD-10-PCS; 2021-02-05)
PROC: 3E0M05Z Introduction of Adhesion Barrier into Peritoneal Cavity, Open Approach (ICD-10-PCS; 2021-02-05)
DX: K95.89 Other complications of other bariatric procedure (principal); K56.2 Volvulus; K56.600 Partial intestinal obstruction, unspecified as to cause; K90.9 Intestinal malabsorption, unspecified; Y83.8 Other surgical procedures as the cause of abnormal reaction of the patient, or of later complication, without mention of misadventure at the time of the procedure; Z98.84 Bariatric surgery status; E53.8 Deficiency of other specified B group vitamins; E55.9 Vitamin D deficiency, unspecified; F41.9 Anxiety disorder, unspecified; F32.A Depression, unspecified; I10 Essential (primary) hypertension; E78.5 Hyperlipidemia, unspecified; Z90.49 Acquired absence of other specified parts of digestive tract; Z90.710 Acquired absence of both cervix and uterus; Z79.899 Other long term (current) drug therapy; Z91.013 Allergy to seafood; Z91.09 Other allergy status, other than to drugs and biological substances
CPT/HCPCS: 0241U; 36415; 74240; 80053; 82728; 83735; 84100; 85027; 94762; A9270-GY; C9113; J0171; J0330; J0694; J1100; J1170; J1644; J2185; J2405; J2704; J2710; J2795; J3010; J3410; J3411; J3490; J7121; Q9967

== ENCOUNTER 2021-04-11 15:37 | Inpatient (IN) | payer MEDICAID ==
[2021-04-11] MEDS ORDERED: HYDROmorphone 1 MG/ML Syringe IVPUSH PRN (16:09)
[2021-04-11] MEDS: Dextrose 5%-Lactated Ringers 1,000 ML IV SCH ×2 (16:22→23:26)
[2021-04-11] MEDS ORDERED: Acetaminophen 500 MG Tab PO PRN (16:23)
[2021-04-11] MEDS: Pantoprazole 40 MG Vial IVPUSH SCH (16:48)
[2021-04-11 17:16] LABS: CORONAVIRUS COVID-19 NAA NEGATIVE (NEGATIVE)
[2021-04-12] MEDS: Dextrose 5%-Lactated Ringers 1,000 ML IV SCH ×2 (07:55→22:59)
[2021-04-12] MEDS ORDERED: Glycopyrrolate 0.2 MG/ML 5 ML MDV ONE (09:00)
[2021-04-12] MEDS ORDERED: Rocuronium 50 MG/5 ML Vial ONE (09:00)
[2021-04-12] MEDS ORDERED: Neostigmine Methylsulfate 1 MG/ML 5 ML Syringe ONE (09:00)
[2021-04-12] MEDS ORDERED: Dexamethasone 4 MG/ML SDV ONE (09:00)
[2021-04-12] MEDS ORDERED: Succinylcholine 200 MG/10 ML MDV ONE (09:00)
[2021-04-12] MEDS ORDERED: Propofol 200 MG/20 ML SDV ONE (09:00)
[2021-04-12] MEDS ORDERED: Ondansetron 4 MG/2 ML SDV ONE (09:00)
[2021-04-12] MEDS ORDERED: fentaNYL 250 MCG/5 ML SDV ONE (09:00)
[2021-04-12] MEDS ORDERED: Ropivacaine 30 ML, dexAMETHasone 8 MG, EPINEPHrine 0.4 MG, Sodium Chloride 0.9% 47.6 ML NERVRT SCH ×4 (10:30)
[2021-04-12] MEDS ORDERED: Ketamine 500 MG/5 ML MDV IV SCH (10:30)
[2021-04-12] MEDS ORDERED: Ketamine 18 MG in Sodium Chloride 0.9% 19.82 ML IV SCH (10:30)
[2021-04-12] MEDS ORDERED: cefOXitin 2 GM in Sodium Chloride 0.9% 50 ML IV ONE (10:30)
[2021-04-12] MEDS ORDERED: Bupivacaine 0.5%/EPINEPHrine 1:200,000 50 ML MDV ONE (10:51)
[2021-04-12] MEDS ORDERED: Meropenem 500 MG SDV ONE (10:51)
[2021-04-12] MEDS ORDERED: Naloxone 0.4 MG/ML SDV IVPUSH PRN (11:24)
[2021-04-12] MEDS ORDERED: diphenhydrAMINE 50 MG/ML SDV IVPUSH PRN ×2 (11:24→15:00)
[2021-04-12] MEDS ORDERED: Ondansetron 4 MG/2 ML SDV IVPUSH PRN (11:24)
[2021-04-12] MEDS ORDERED: diphenhydrAMINE 25 MG Cap PO PRN (11:24)
[2021-04-12] MEDS ORDERED: Lidocaine 1% with EPINEPHrine 1:100,000 50 ML MDV ONE (11:28)
[2021-04-12] MEDS ORDERED: Bupivacaine 0.5% 50 ML MDV ONE (11:28)
[2021-04-12] MEDS ORDERED: Naloxone 0.4 MG/ML SDV IV PRN (12:00)
[2021-04-12] MEDS: HYDROmorphone/Normal Saline 6 MG/30 ML PCA Vial IV PRN (12:13)
[2021-04-12] MEDS ORDERED: fentaNYL 100 MCG/2 ML SDV ONE ×2 (12:19→13:03)
[2021-04-12] MEDS ORDERED: Lactated Ringers 1,000 ML ONE (12:21)
[2021-04-12] MEDS ORDERED: hydrOXYzine HCL 100 MG/2 ML SDV IM ONE (13:21)
[2021-04-12] MEDS ORDERED: Cyclobenzaprine 10 MG Tab PO PRN (14:16)
[2021-04-12] MEDS ORDERED: Scopolamine 1.5 MG Transdermal Patch TOP PRN (14:25)
[2021-04-12] MEDS: Acetaminophen 500 MG Tab PO SCH ×2 (14:47→21:03)
[2021-04-12] MEDS ORDERED: hydrOXYzine HCL 100 MG/2 ML SDV IM PRN (15:00)
[2021-04-12] MEDS ORDERED: Labetalol 20 MG/4 ML Syringe IVPUSH PRN (15:00)
[2021-04-12] MEDS ORDERED: Metoclopramide 10 MG/2 ML SDV IVPUSH PRN (15:00)
[2021-04-12] MEDS ORDERED: Acetaminophen 500 MG Tab PO PRN (15:00)
[2021-04-12] MEDS ORDERED: MVI, Adult with Vitamin K 10 ML, Thiamine 200 MG, Zinc/Copper/Manganese/Selenium 1 ML i... IV SCH ×4 (16:00)
[2021-04-12] MEDS: cefOXitin 2 GM in Sodium Chloride 0.9% 50 ML IV SCH ×2 (16:04→21:04)
[2021-04-12] MEDS: Pantoprazole 40 MG Vial IVPUSH SCH (17:05)
[2021-04-12] MEDS: Heparin Sodium 5,000 Units/ML Vial SUBCUT SCH (20:53)
[2021-04-13] MEDS: cefOXitin 2 GM in Sodium Chloride 0.9% 50 ML IV SCH ×3 (03:12→16:00)
[2021-04-13] MEDS ORDERED: Iopamidol 612 MG/ML 50 ML SDV PO ONE (03:47)
[2021-04-13] MEDS ORDERED: methylPREDNISolone Sodium Succinate 125 MG/2 ML SDV IVPUSH ONE (04:00)
[2021-04-13] MEDS: HYDROmorphone/Normal Saline 6 MG/30 ML PCA Vial IV PRN (04:18)
[2021-04-13] MEDS: Dextrose 5%-Lactated Ringers 1,000 ML IV SCH ×2 (05:16→15:13)
[2021-04-13] MEDS: Acetaminophen 500 MG Tab PO SCH ×3 (05:17→21:28)
[2021-04-13] MEDS: Heparin Sodium 5,000 Units/ML Vial SUBCUT SCH ×2 (08:48→19:41)
[2021-04-13] MEDS: Docusate Sodium 100 MG Cap PO SCH ×2 (08:49→21:28)
[2021-04-13] MEDS: Celecoxib 200 MG Cap PO SCH ×2 (08:49→21:28)
[2021-04-13] MEDS: Bisacodyl 5 MG Tab PO SCH ×2 (08:50→21:28)
[2021-04-13] MEDS: SCOPOLAMINE PATCH CHECK TOP SCH (08:51)
[2021-04-13] MEDS ORDERED: MVI, Adult with Vitamin K 10 ML, Thiamine 200 MG, Zinc/Copper/Manganese/Selenium 1 ML i... IV SCH ×4 (16:00)
[2021-04-13] MEDS: Pantoprazole 40 MG Delayed-Release Granules 1 Packet PO SCH (16:05)
[2021-04-13] MEDS: Ondansetron 4 MG/2 ML SDV IVPUSH PRN (23:13)
[2021-04-14] MEDS: Dextrose 5%-Lactated Ringers 1,000 ML IV SCH (02:33)
[2021-04-14] MEDS: Ondansetron 4 MG/2 ML SDV IVPUSH PRN (04:36)
[2021-04-14] MEDS: Acetaminophen 500 MG Tab PO SCH ×3 (05:41→21:08)
[2021-04-14] MEDS: Celecoxib 200 MG Cap PO SCH ×2 (08:03→21:08)
[2021-04-14] MEDS: Heparin Sodium 5,000 Units/ML Vial SUBCUT SCH ×2 (08:03→21:08)
[2021-04-14] MEDS: SCOPOLAMINE PATCH CHECK TOP SCH (08:04)
[2021-04-14] MEDS: Docusate Sodium 100 MG Cap PO SCH ×2 (08:04→21:08)
[2021-04-14] MEDS: Bisacodyl 5 MG Tab PO SCH ×2 (08:04→21:08)
[2021-04-14] MEDS ORDERED: Cyclobenzaprine 10 MG Tab PO PRN (08:15)
[2021-04-14] MEDS ORDERED: Cyanocobalamin (Vitamin B12) 1,000 MCG/ML SDV IM ONE (09:00)
[2021-04-14] MEDS: oxyCODONE 5 MG Tab PO PRN ×2 (16:31→21:54)
[2021-04-14] MEDS: Pantoprazole 40 MG Delayed-Release Granules 1 Packet PO SCH (16:31)
[2021-04-15] MEDS: Acetaminophen 500 MG Tab PO SCH ×2 (05:33→08:30)
[2021-04-15] MEDS: Celecoxib 200 MG Cap PO SCH (08:30)
[2021-04-15] MEDS: oxyCODONE 5 MG Tab PO PRN ×2 (09:05→11:41)
[2021-04-15] MEDS: Docusate Sodium 100 MG Cap PO SCH (11:00)
[2021-04-15] MEDS: Bisacodyl 5 MG Tab PO SCH (11:00)
[2021-04-15] MEDS: Heparin Sodium 5,000 Units/ML Vial SUBCUT SCH (11:00)
== END 2021-04-15 11:54 | disposition home or self-care (01) | DRG 330 ==
LOC: JP.MS 15:37
PROVIDERS: ADMIT Surgery; ATTEND Surgery
PROC: 0DB80ZZ Excision of Small Intestine, Open Approach (ICD-10-PCS; principal; 2021-04-12)
PROC: 0DBW0ZZ Excision of Peritoneum, Open Approach (ICD-10-PCS; 2021-04-12)
PROC: 0WQF0ZZ Repair Abdominal Wall, Open Approach (ICD-10-PCS; 2021-04-12)
PROC: 3E0M05Z Introduction of Adhesion Barrier into Peritoneal Cavity, Open Approach (ICD-10-PCS; 2021-04-12)
DX: K91.31 Postprocedural partial intestinal obstruction (principal); K43.0 Incisional hernia with obstruction, without gangrene; K95.89 Other complications of other bariatric procedure; Z20.822 Contact with and (suspected) exposure to COVID-19
CPT/HCPCS: 0241U; 36415; 74240; 74240-26; 80053; 82607; 82728; 82746; 83735; 84100; 85027; A9270-GY; C9113; J0171; J0330; J0694; J1100; J1170; J1644; J2020; J2185; J2405; J2704; J2710; J2795; J2930; J3010; J3410; J3411; J3420; J3490; J7120; J7121; Q9967